=== PATIENT | female | born 2000 | race Caucasian/White ===

== ENCOUNTER → 2020-06-08 | Outpatient (CLI) | payer OTHER ==
[~2020-06-08] MED LIST: LODINE CAP 300300 MG PO; NORFLEX 100 MG100 MG PO; VIBRAMYCIN100 MG PO
== END ==
LOC: LAB 13:02
DX: I27.20 Pulmonary hypertension, unspecified (principal); Z79.899 Other long term (current) drug therapy
CPT/HCPCS: 36415; 84702

== ENCOUNTER → 2020-07-06 | Outpatient (CLI) | payer OTHER, BC | LOC: LAB 13:20 | DX: I27.20 Pulmonary hypertension, unspecified (principal); Z79.899 Other long term (current) drug therapy | CPT/HCPCS: 36415; 84702 ==

== ENCOUNTER → 2020-07-08 | Outpatient (CLI) | payer OTHER, BC ==
[2020-07-08 16:13] LABS: RED BLOOD COUNT 3.68 M/UL (4.00-5.10); WHITE BLOOD COUNT 6.4 K/UL (4.5-11.0)
== END ==
LOC: VNA 16:00
PROVIDERS: Internal Medicine
DX: Z79.899 Other long term (current) drug therapy (principal); R78.81 Bacteremia
CPT/HCPCS: 80076; 82550; 82565; 84520; 85025

== ENCOUNTER → 2020-07-21 | Outpatient (CLI) | payer OTHER, BC ==
[2020-07-21 11:56] LABS: HEMOGLOBIN 12.7 gm/dl (12.3-15.3); WHITE BLOOD COUNT 4.4 K/UL (4.5-11.0)
== END ==
LOC: LBRF 11:14
PROVIDERS: Internal Medicine
DX: Q85.00 Neurofibromatosis, unspecified (principal); Z79.2 Long term (current) use of antibiotics
CPT/HCPCS: 80076; 82550; 82565; 84520; 85025

== ENCOUNTER → 2020-08-10 | Outpatient (CLI) | payer OTHER | LOC: LAB 11:39 | DX: I27.21 Secondary pulmonary arterial hypertension (principal); Z79.899 Other long term (current) drug therapy | CPT/HCPCS: 36415; 84702 ==

== ENCOUNTER → 2020-09-21 | Outpatient (CLI) | payer OTHER | LOC: LAB 13:48 | DX: I27.21 Secondary pulmonary arterial hypertension (principal); Z79.899 Other long term (current) drug therapy | CPT/HCPCS: 36415; 84702 ==

== ENCOUNTER 2022-01-16 19:58 | Emergency (ER) | payer OTHER ==
[2022-01-16 20:56] LABS: HEMOGLOBIN 17.4 gm/dl (12.3-15.3); RED BLOOD COUNT 5.11 M/UL (4.00-5.10); WHITE BLOOD COUNT 11.5 K/UL (4.5-11.0)
[2022-01-16 21:08] LABS: BUN/CREATININE RATIO 25 (0-10)
[2022-01-17] MEDS ORDERED: BENTYL 20MG TAB20 MG PO (03:27)
[2022-01-17] MEDS ORDERED: ZOFRAN ODT 4 MG4 MG PO (03:27)
== END 2022-01-17 03:35 | disposition home or self-care (01) ==
LOC: ER1 19:58
PROVIDERS: Nurse Practitioner
DX: U07.1 COVID-19 (principal); R10.11 Right upper quadrant pain; R10.811 Right upper quadrant abdominal tenderness; E80.6 Other disorders of bilirubin metabolism; I11.0 Hypertensive heart disease with heart failure; I50.9 Heart failure, unspecified; Z88.1 Allergy status to other antibiotic agents; Z88.0 Allergy status to penicillin
CPT/HCPCS: 71045; 80053; 81001; 84703; 85025; 87086; 96374; 99284; J2405; Q9967; U0002